=== PATIENT | female | born 1945 | race Caucasian/White ===

== ENCOUNTER 2016-09-30 10:50 | Outpatient (CLI) | payer MEDICARE, MEDICAID | END 2016-09-30 10:51 | disposition home or self-care (01) | DX: E78.5 Hyperlipidemia, unspecified (principal); I10 Essential (primary) hypertension; E11.9 Type 2 diabetes mellitus without complications; E03.9 Hypothyroidism, unspecified ==

== ENCOUNTER 2018-01-20 09:08 | Outpatient (CLI) | payer MEDICARE, MEDICAID ==
[2018-01-20 17:41] LABS: BASOPHILS % (AUTO) 0.4 %; EOSINOPHILS % (AUTO) 0.5 %; HGB - HEMOGLOBIN 15.7 g/dL (12.0-16.0); LYMPHOCYTES # (AUTO) 3.1 10^3/uL (1.5-3.5); MEAN CORPUSCULAR HEMOGLOBIN 29.6 pg (27.0-31.0); MEAN CORPUSCULAR HGB CONC 33.1 g/dL (32.0-36.0); MEAN CORPUSCULAR VOLUME 89.5 fL (81.0-99.0); MEAN PLATELET VOLUME 6.9 fL (7.9-10.8); MONOCYTES # (AUTO) 0.4 10^3/uL (0.0-1.0); MONOCYTES % (AUTO) 4.9 %; NEUTROPHILS # (AUTO) 4.9 10^3/uL (1.5-6.6); NEUTROPHILS % (AUTO) 58.2 %; PLT - PLATELET COUNT 473 10^3/uL (130-450); RED CELL DISTRIBUTION WIDTH 13.5 % (12.0-15.0); WHITE BLOOD COUNT 8.5 x10^3/uL (4.8-10.8)
[2018-01-20 18:10] LABS: HB2 TOTAL 17.2 g/dL; HEMOGLOBIN A1C 0.62 g/dL; HEMOGLOBIN A1C % 5.4 % (4.6-6.2)
[2018-01-20 18:59] LABS: THYROID STIMULATING HORMONE 0.18 uIU/mL (0.34-5.60)
[2018-01-20 19:00] LABS: FREE T4 (FREE THYROXINE) 0.58 ng/dL (0.58-1.64)
[2018-01-20 19:05] LABS: ALBUMIN/GLOBULIN RATIO 1.1 (1.0-2.2); ALKALINE PHOSPHATASE 78 IU/L (42-121); ALT ALANINE AMINOTRANSFERASE 20 IU/L (10-60); AST ASPARTATE AMINOTRANSFERASE 25 IU/L (10-42); BILIRUBIN,TOTAL 0.8 mg/dL (0.2-1.0); BUN - BLOOD UREA NITROGEN 17 mg/dL (6-20); CALCIUM 9.1 mg/dL (8.5-10.3); CARBON DIOXIDE - CO2 24 mmol/L (21-32); CHLORIDE 101 mmol/L (101-111); CHOL/HDL RATIO 3.4 (<4.4); CHOLESTEROL 252 mg/dL; GFR - MDRD 55 (>89); GLUCOSE 124 mg/dL (70-100); HDL CHOLESTEROL 74 mg/dL; LDL CHOLESTEROL,CALCULATED 146 mg/dL; SODIUM 138 mmol/L (135-145); TOTAL PROTEIN 7.7 g/dL (6.7-8.2); VLDL CHOLESTEROL 32 mg/dL
== END 2018-01-20 09:09 | disposition home or self-care (01) ==
LOC: LAB.F 09:08
PROVIDERS: ATTEND Physician Assistant Medical
DX: I10 Essential (primary) hypertension (principal); E11.9 Type 2 diabetes mellitus without complications; E03.9 Hypothyroidism, unspecified
CPT/HCPCS: 36415; 80053; 80061; 82043; 83036; 83721; 84439; 84443; 84481; 85025

== ENCOUNTER 2018-01-26 12:11 | Outpatient (CLI) | payer MEDICARE, MEDICAID ==
[2018-01-28 13:05] LABS: THYROID PEROXIDASE ANTIBODIES 102 IU/mL (<9)
== END 2018-01-26 12:12 | disposition home or self-care (01) ==
LOC: LAB.F 12:11
PROVIDERS: ATTEND Physician Assistant Medical
DX: E03.9 Hypothyroidism, unspecified (principal); E11.9 Type 2 diabetes mellitus without complications
CPT/HCPCS: 36415; 82043; 84480; 86376; 86800

== ENCOUNTER 2018-01-28 10:48 | Outpatient (CLI) | payer MEDICARE, MEDICAID | END 2018-01-28 10:49 | disposition home or self-care (01) | LOC: LAB.F 10:48 → LAB.R 10:49 | PROVIDERS: ATTEND Physician Assistant Medical | DX: E11.9 Type 2 diabetes mellitus without complications (principal); E03.9 Hypothyroidism, unspecified | CPT/HCPCS: 82043 ==

== ENCOUNTER 2019-04-28 08:31 | Outpatient (CLI) | payer MEDICARE, MEDICAID ==
[2019-04-28 09:15] LABS: BASOPHILS % (AUTO) 0.4 %; EOSINOPHILS # (AUTO) 0.1 10^3/uL (0.0-0.7); EOSINOPHILS % (AUTO) 1.2 %; HGB - HEMOGLOBIN 15.7 g/dL (12.0-16.0); MEAN CORPUSCULAR HGB CONC 32.6 g/dL (32.0-36.0); MEAN CORPUSCULAR VOLUME 92.2 fL (81.0-99.0); MEAN PLATELET VOLUME 8.3 fL (7.9-10.8); MONOCYTES # (AUTO) 0.5 10^3/uL (0.0-1.0); MONOCYTES % (AUTO) 6.2 %; NEUTROPHILS # (AUTO) 5.1 10^3/uL (1.5-6.6); NEUTROPHILS % (AUTO) 65.9 %; PLT - PLATELET COUNT 424 10^3/uL (130-450); RED BLOOD COUNT 5.23 10^6/uL (4.20-5.40); RED CELL DISTRIBUTION WIDTH 12.8 % (12.0-15.0); WHITE BLOOD COUNT 7.8 x10^3/uL (4.8-10.8)
[2019-04-28 09:26] LABS: BUN - BLOOD UREA NITROGEN 23 mg/dL (6-20); CALCIUM 9.2 mg/dL (8.5-10.3); CARBON DIOXIDE - CO2 25 mmol/L (21-32); CHLORIDE 104 mmol/L (101-111); CHOL/HDL RATIO 3.3 (<4.4); CHOLESTEROL 277 mg/dL; CREATININE 1.1 mg/dL (0.4-1.0); GFR - MDRD 49 (>89); GLUCOSE 116 mg/dL (70-100); HDL CHOLESTEROL 85 mg/dL; LDL CHOLESTEROL,CALCULATED 168 mg/dL; SODIUM 139 mmol/L (135-145); VLDL CHOLESTEROL 24 mg/dL
[2019-04-28 09:46] LABS: HB2 TOTAL 16.2 g/dL; HEMOGLOBIN A1C 0.62 g/dL; HEMOGLOBIN A1C % 5.7 % (4.6-6.2)
[2019-04-28 10:01] LABS: THYROID STIMULATING HORMONE 7.33 uIU/mL (0.34-5.60)
[2019-04-28 10:02] LABS: FREE T4 (FREE THYROXINE) 0.61 ng/dL (0.58-1.64)
--- NOTE | 2019-04-28 10:12 | DEXA Report ---
Reason: POSTMENOPAUSAL Procedure Date: 04/28/2019 Accession Number: [id number] / [id number] Procedure: DEX - Dexa Spine and/or Hip CPT Code: Final Report FULL RESULT: EXAM: Dexa Spine and/or Hip DATE: 04/28/2019 9:57 AM CLINICAL HISTORY: POSTMENOPAUSAL TECHNIQUE: Dual energy x-ray absorptiometry (DXA) was performed on a [employer] System. Regions measured are the AP Spine, femoral neck, and if needed forearm. COMPARISON: None. In accordance with the International Society for Clinical Densitometry (ISCD) guidelines, data from previous exams may be reanalyzed using current recommendations and techniques. This is done to allow a more accurate basis for comparison with the current study. FINDINGS: The data for the lumbar spine is as follows: BMD (g/cm/cm) T-SCORE Z-SCORE REGION L1 0.809 -2.7 -1.8 L2 0.979 -1.8 -1.0 L3 1.094 -0.9 0.0 L4 1.329 1.1 2.0 TOTAL 1.075 -0.9 0.0 NOTE: All evaluable vertebrae are used for classification The data for the hip is as follows: BMD (g/cm/cm) T-SCORE Z-SCORE REGION Neck 0.738 -2.2 -0.9 TOTAL 0.877 -1.0 0.0 NOTE: The femoral neck or total proximal femur, whichever is lowest, is used for classification. IMPRESSION: THE WHO CLASSIFICATION BASED ON THE INTERNATIONAL REFERENCE STANDARD IS OSTEOPENIA. THE FRACTURE RISK IS INCREASED. RECOMMENDATION: Patients with diagnosis of osteoporosis or osteopenia should have regular bone mineral density assessment. For those eligible for Medicare, routine testing is allowed once every 2 years. Testing frequency can be increased for patients who have rapidly progressing disease or for those who are receiving medical therapy to restore bone mass. COMMENT: World Health Organization (WHO) definitions for osteoporosis and osteopenia: NORMAL BMD: T-score at -1.0 or higher, fracture risk is low OSTEOPENIA BMD: T-score between -1.0 and -2.5, fracture risk is increased. OSTEOPOROSIS BMD: T-score at -2.5 or lower, fracture risk is high. National Osteoporosis Foundation recommends: 1. Obtain adequate dietary calcium (at least 1200 mg per day) and vitamin D (400-800 international units per day). 2. Participate, as appropriate, in regular weightbearing and muscle-strengthening exercise. 3. Avoid tobacco use and reduce alcohol and caffeine intake. 4. For more detailed information see the website at www.NOF.org.
[2019-04-28 13:35] LABS: CREATININE,URINE 609.3 mg/dL
[2019-04-28 13:36] LABS: MICROALBUM/CREATININE RATIO,UR 5.7 ug/mg (<30.0); MICROALBUMIN,URINE 3.5 mg/dL (0-300.0)
== END 2019-04-28 08:32 | disposition home or self-care (01) ==
LOC: DI 08:31
PROVIDERS: ATTEND Physician Assistant Medical
DX: M85.88 Other specified disorders of bone density and structure, other site (principal); E11.9 Type 2 diabetes mellitus without complications; E78.5 Hyperlipidemia, unspecified; E03.9 Hypothyroidism, unspecified; Z51.81 Encounter for therapeutic drug level monitoring
CPT/HCPCS: 36415; 77080; 80048; 80061; 82043; 82570; 83036; 83721; 84439; 84443; 84481; 85025

== ENCOUNTER 2019-04-28 08:51 | Outpatient (CLI) | payer MEDICARE, MEDICAID ==
--- NOTE | 2019-04-28 10:09 | Mammography Report ---
Reason: ROUTINE MAMMO Procedure Date: 04/28/2019 Accession Number: [id number] / [id number] Procedure: JENY - Screening Mammo Impl w/Evgeny CPT Code: Final Report FULL RESULT: EXAM: Screening Mammo Impl w/Evgeny DATE: 04/28/2019 9:42 AM CLINICAL HISTORY: Screening encounter. History of bilateral breast augmentation. TECHNIQUE: (B) - Bilateral CC and MLO views were obtained. Views were obtained in standard fashion and implant displaced technique. COMPARISON: 05/30/2014 through 08/31/2009. PARENCHYMAL PATTERN: (D) - The breast(s) demonstrate(s) heterogeneously dense fibroglandular parenchyma. FINDINGS: There are coarse typically benign calcifications and typically benign vascular calcifications. Bilateral prepectoral silicone type implants are again noted. A mildly hyperdense nodule upper right breast, approximately 15 cm from the nipple is seen on MLO view only and has not significantly changed dating back to 2009, typically benign. There are no suspicious masses, calcifications, or areas of distortion. IMPRESSION: Benign findings. BI-RADS category 2. RECOMMENDATION: (ANNUAL) - Recommend routine annual screening mammography. BI-RADS CATEGORY: (2) - Benign Findings. STANDARD QUALIFYING STATEMENTS: 1. This examination was not reviewed with the aid of Computer-Aided Detection (CAD). 2. A negative or benign imaging report should not preclude biopsy if clinically suspicious findings are present. 3. Dense breasts may obscure an underlying neoplasm. 4. This examination was reviewed with the aid of 3D breast imaging (tomosynthesis).
== END 2019-04-28 08:52 | disposition home or self-care (01) ==
LOC: DI 08:51
PROVIDERS: ATTEND Physician Assistant Medical
DX: Z12.31 Encounter for screening mammogram for malignant neoplasm of breast (principal); Z98.82 Breast implant status
CPT/HCPCS: 77063; 77067

== ENCOUNTER 2020-11-10 07:08 | Outpatient (CLI) | payer MEDICARE, MEDICAID ==
[2020-11-10 14:53] LABS: BASOPHILS % (AUTO) 0.4 %; EOSINOPHILS # (AUTO) 0.1 10^3/uL (0.0-0.7); EOSINOPHILS % (AUTO) 1.3 %; HGB - HEMOGLOBIN 15.4 g/dL (12.0-16.0); LYMPHOCYTES # (AUTO) 2.7 10^3/uL (1.5-3.5); LYMPHOCYTES % (AUTO) 34.8 %; MEAN CORPUSCULAR HEMOGLOBIN 28.9 pg (27.0-31.0); MEAN CORPUSCULAR HGB CONC 31.4 g/dL (32.0-36.0); MEAN CORPUSCULAR VOLUME 91.9 fL (81.0-99.0); MEAN PLATELET VOLUME 9.1 fL (7.9-10.8); MONOCYTES # (AUTO) 0.6 10^3/uL (0.0-1.0); MONOCYTES % (AUTO) 7.4 %; NEUTROPHILS # (AUTO) 4.3 10^3/uL (1.5-6.6); PLT - PLATELET COUNT 467 10^3/uL (130-450); RED BLOOD COUNT 5.33 10^6/uL (4.20-5.40); RED CELL DISTRIBUTION WIDTH 13.2 % (12.0-15.0); WHITE BLOOD COUNT 7.7 x10^3/uL (4.8-10.8)
[2020-11-10 15:18] LABS: ALBUMIN 4.4 g/dL (3.2-5.5); ALBUMIN/GLOBULIN RATIO 1.3 (1.0-2.2); ALKALINE PHOSPHATASE 64 IU/L (42-121); ALT ALANINE AMINOTRANSFERASE 20 IU/L (10-60); AST ASPARTATE AMINOTRANSFERASE 22 IU/L (10-42); BILIRUBIN,TOTAL 0.8 mg/dL (0.2-1.0); BUN - BLOOD UREA NITROGEN 28 mg/dL (6-20); CALCIUM 9.8 mg/dL (8.5-10.3); CARBON DIOXIDE - CO2 24 mmol/L (21-32); CHLORIDE 103 mmol/L (101-111); CHOL/HDL RATIO 3.1 (<4.4); CHOLESTEROL 229 mg/dL; CREATININE 1.1 mg/dL (0.4-1.0); GFR - MDRD 49 (>89); GLUCOSE 113 mg/dL (70-100); HDL CHOLESTEROL 73 mg/dL; LDL CHOLESTEROL,CALCULATED 130 mg/dL; LDL/HDL RATIO 1.8 (<4.4); POTASSIUM 4.2 mmol/L (3.5-5.0); SODIUM 140 mmol/L (135-145); TOTAL PROTEIN 7.9 g/dL (6.7-8.2); TRIGLYCERIDES 132 mg/dL; VLDL CHOLESTEROL 26 mg/dL
[2020-11-10 15:26] LABS: THYROID STIMULATING HORMONE 0.28 uIU/mL (0.34-5.60)
[2020-11-10 16:09] LABS: FREE T4 (FREE THYROXINE) 0.87 ng/dL (0.58-1.64)
[2020-11-10 19:49] LABS: ESTIMATED AVERAGE GLUCOSE 105 mg/dL (70-100); HEMOGLOBIN A1c% 5.3 % (4.27-6.07)
== END 2020-11-10 07:09 | disposition home or self-care (01) ==
LOC: LAB.S 07:08
PROVIDERS: ATTEND Internal Medicine
DX: Z00.00 Encounter for general adult medical examination without abnormal findings (principal); E06.3 Autoimmune thyroiditis; E11.9 Type 2 diabetes mellitus without complications; E78.5 Hyperlipidemia, unspecified
CPT/HCPCS: 36415; 80053; 80061; 83036; 83721; 84439; 84443; 85025

== ENCOUNTER 2021-09-08 09:15 | Outpatient (CLI) | payer MEDICARE, MEDICAID ==
[2021-09-08 15:19] LABS: BASOPHILS % (AUTO) 0.4 %; EOSINOPHILS # (AUTO) 0.1 10^3/uL (0.0-0.7); EOSINOPHILS % (AUTO) 1.6 %; HCT - HEMATOCRIT 46.7 % (37.0-47.0); LYMPHOCYTES # (AUTO) 2.1 10^3/uL (1.5-3.5); LYMPHOCYTES % (AUTO) 37.1 %; MEAN CORPUSCULAR HEMOGLOBIN 29.9 pg (27.0-31.0); MEAN CORPUSCULAR HGB CONC 32.1 g/dL (32.0-36.0); MEAN PLATELET VOLUME 8.9 fL (7.9-10.8); MONOCYTES # (AUTO) 0.5 10^3/uL (0.0-1.0); MONOCYTES % (AUTO) 8.5 %; NEUTROPHILS # (AUTO) 2.9 10^3/uL (1.5-6.6); NEUTROPHILS % (AUTO) 52.2 %; PLT - PLATELET COUNT 379 10^3/uL (130-450); RED BLOOD COUNT 5.02 10^6/uL (4.20-5.40); RED CELL DISTRIBUTION WIDTH 12.8 % (12.0-15.0); WHITE BLOOD COUNT 5.5 x10^3/uL (4.8-10.8)
[2021-09-08 15:55] LABS: ALBUMIN/GLOBULIN RATIO 1.5 (1.0-2.2); ALKALINE PHOSPHATASE 67 IU/L (42-121); ALT ALANINE AMINOTRANSFERASE 19 IU/L (10-60); AST ASPARTATE AMINOTRANSFERASE 22 IU/L (10-42); BILIRUBIN,TOTAL 0.5 mg/dL (0.2-1.0); BUN - BLOOD UREA NITROGEN 27 mg/dL (6-20); CALCIUM 9.7 mg/dL (8.5-10.3); CARBON DIOXIDE - CO2 27 mmol/L (21-32); CHLORIDE 104 mmol/L (101-111); CHOL/HDL RATIO 3.3 (<4.4); CHOLESTEROL 259 mg/dL; CREATININE 0.9 mg/dL (0.4-1.0); GFR - MDRD 61 (>89); GLUCOSE 92 mg/dL (70-100); HDL CHOLESTEROL 79 mg/dL; LDL CHOLESTEROL,CALCULATED 153 mg/dL; LDL/HDL RATIO 1.9 (<4.4); POTASSIUM 4.3 mmol/L (3.5-5.0); SODIUM 139 mmol/L (135-145); TOTAL PROTEIN 6.7 g/dL (6.7-8.2); TRIGLYCERIDES 135 mg/dL; VLDL CHOLESTEROL 27 mg/dL
[2021-09-08 16:59] LABS: THYROID STIMULATING HORMONE 3.51 uIU/mL (0.34-5.60)
[2021-09-08 21:40] LABS: ESTIMATED AVERAGE GLUCOSE 111 mg/dL (70-100); HEMOGLOBIN A1c% 5.5 % (4.27-6.07)
== END 2021-09-08 09:16 | disposition home or self-care (01) ==
LOC: LAB.S 09:15
PROVIDERS: ATTEND Internal Medicine
DX: E11.9 Type 2 diabetes mellitus without complications (principal); E06.3 Autoimmune thyroiditis
CPT/HCPCS: 36415; 80053; 80061; 83036; 83721; 84443; 85025

== ENCOUNTER 2022-09-05 12:24 | Outpatient (CLI) | payer MEDICARE, MEDICAID ==
[2022-09-05 14:07] LABS: BASOPHILS % (AUTO) 0.4 %; EOSINOPHILS # (AUTO) 0.1 10^3/uL (0.0-0.7); EOSINOPHILS % (AUTO) 1.8 %; HCT - HEMATOCRIT 49.5 % (37.0-47.0); HGB - HEMOGLOBIN 15.5 g/dL (12.0-16.0); LYMPHOCYTES # (AUTO) 2.4 10^3/uL (1.5-3.5); LYMPHOCYTES % (AUTO) 43.9 %; MEAN CORPUSCULAR HEMOGLOBIN 29.1 pg (27.0-31.0); MEAN CORPUSCULAR HGB CONC 31.3 g/dL (32.0-36.0); MEAN PLATELET VOLUME 8.6 fL (7.9-10.8); MONOCYTES # (AUTO) 0.4 10^3/uL (0.0-1.0); MONOCYTES % (AUTO) 7.7 %; NEUTROPHILS # (AUTO) 2.5 10^3/uL (1.5-6.6); NEUTROPHILS % (AUTO) 45.8 %; PLT - PLATELET COUNT 382 10^3/uL (130-450); RED BLOOD COUNT 5.32 10^6/uL (4.20-5.40); RED CELL DISTRIBUTION WIDTH 12.3 % (12.0-15.0); WHITE BLOOD COUNT 5.4 x10^3/uL (4.8-10.8)
[2022-09-05 14:19] LABS: ALBUMIN 4.2 g/dL (3.2-5.5); ALBUMIN/GLOBULIN RATIO 1.2 (1.0-2.2); ALKALINE PHOSPHATASE 65 IU/L (42-121); ALT ALANINE AMINOTRANSFERASE 12 IU/L (10-60); AST ASPARTATE AMINOTRANSFERASE 21 IU/L (10-42); BILIRUBIN,TOTAL 0.5 mg/dL (0.2-1.0); BUN - BLOOD UREA NITROGEN 26 mg/dL (6-20); CALCIUM 9.4 mg/dL (8.5-10.3); CARBON DIOXIDE - CO2 28 mmol/L (21-32); CHLORIDE 106 mmol/L (101-111); CHOL/HDL RATIO 3.5 (<4.4); CHOLESTEROL 266 mg/dL; GFR - MDRD 54 (>89); GLUCOSE 118 mg/dL (70-100); HDL CHOLESTEROL 77 mg/dL; LDL CHOLESTEROL,CALCULATED 159 mg/dL; LDL/HDL RATIO 2.1 (<4.4); POTASSIUM 4.3 mmol/L (3.5-5.0); SODIUM 141 mmol/L (135-145); TOTAL PROTEIN 7.6 g/dL (6.7-8.2); TRIGLYCERIDES 148 mg/dL; VLDL CHOLESTEROL 30 mg/dL
[2022-09-05 14:31] LABS: THYROID STIMULATING HORMONE 0.17 uIU/mL (0.34-5.60)
[2022-09-05 15:15] LABS: FREE T4 (FREE THYROXINE) 0.88 ng/dL (0.58-1.64)
== END 2022-09-05 12:25 | disposition home or self-care (01) ==
LOC: LAB.S 12:24
PROVIDERS: ATTEND Registered Nurse
DX: E06.3 Autoimmune thyroiditis (principal); Z79.899 Other long term (current) drug therapy; Z13.220 Encounter for screening for lipoid disorders
CPT/HCPCS: 36415; 80053; 80061; 83721; 84439; 84443; 85025

== ENCOUNTER 2022-12-17 08:28 | Outpatient (CLI) | payer MEDICARE, MEDICAID ==
[2022-12-17 15:35] LABS: T4 (THYROXINE) 7.44 ug/dL (6.09-12.23)
[2022-12-17 15:39] LABS: THYROID STIMULATING HORMONE 1.4 uIU/mL (0.34-5.60)
== END 2022-12-17 08:29 | disposition home or self-care (01) ==
LOC: LAB.S 08:28
PROVIDERS: ATTEND Registered Nurse
DX: E03.9 Hypothyroidism, unspecified (principal)
CPT/HCPCS: 36415; 84436; 84443; 84480